=== PATIENT | female | born 1995 | race African-American/Black ===

== ENCOUNTER 2019-05-31 11:33 | Emergency (ER) | payer MEDICAID ==
[~2019-05-31] VITALS: Ht 160 cm; Wt 79.4 kg
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
[2019-05-31 12:49] LABS: ANION GAP 9 mmol/L (5-15); BASOPHILS % (AUTO) 0.6 % (0.0-2.0); BLOOD UREA NITROGEN 3 mg/dL (7-18); CALCIUM 8.9 MG/DL (8.5-10.1); CARBON DIOXIDE 25 MMOL/L (21-32); CHLORIDE 104 MMOL/L (98-107); CREATININE 0.6 MG/DL (0.55-1.30); HEMATOCRIT 33.8 % (37.0-47.0); LYMPHOCYTES % (AUTO) 26.1 % (20.0-45.0); MEAN CORPUSCULAR VOLUME 84 FL (80-99); MONOCYTES % (AUTO) 10.1 % (1.0-10.0); NEUTROPHILS % (AUTO) 62.3 % (45.0-75.0); PLATELET COUNT 243 K/UL (150-450); POTASSIUM 3.9 MMOL/L (3.5-5.1); RED BLOOD COUNT 4.01 M/UL (4.20-5.40); RED CELL DISTRIBUTION WIDTH 12.1 % (11.6-14.8); SODIUM 138 MMOL/L (136-145); WHITE BLOOD COUNT 6.2 K/UL (4.8-10.8)
[2019-05-31 12:53] LABS: ALANINE AMINOTRANSFERASE 91 U/L (12-78); ALBUMIN/GLOBULIN RATIO 0.7 (1.0-2.7); ALKALINE PHOSPHATASE 95 U/L (46-116); ASPARTATE AMINO TRANSFERASE 45 U/L (15-37); BILIRUBIN,TOTAL 0.5 MG/DL (0.2-1.0)
[2019-05-31 13:03] LABS: APPEARANCE,URINE SLIGHTLY CLOUDY; BILIRUBIN, URINE NEGATIVE (NEGATIVE); GLUCOSE, URINE (UA) NEGATIVE (NEGATIVE); KETONES,URINE 2+ (NEGATIVE); LEUKOCYTE ESTERASE ,URINE 3+ (NEGATIVE); NITRITE,URINE NEGATIVE (NEGATIVE); PH,URINE 6.5 (4.5-8.0); PROTEIN,URINE 1+ (NEGATIVE); UROBILINOGEN,URINE 1 MG/DL (0.0-1.0)
[2019-05-31 13:06] LABS: COLOR,URINE YELLOW
--- NOTE | 2019-05-31 14:15 | NUR ---
ED Nurse Note: patient taken to U/S
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
[2019-05-31] MEDS ORDERED: NITROFURANTOIN100 M2 ORAL (15:14)
[2019-05-31] MEDS ORDERED: TYLENOL EXTRA500 MG ORAL (15:14)
--- NOTE | 2019-05-31 15:14 | Diagnostic Imaging Report ---
Indication: Pelvic pain and vaginal bleeding. patient Technique: Transabdominal and transvaginal images of the uterus and fetus Comparison: none Findings: A single live intrauterine is demonstrated. Position is transverse. There is positive heart activity, heart rate 146 bpm. The placenta is posterior, fundal, clears the internal cervical os. Amniotic fluid volume is normal, amniotic fluid index 11 cm. The cervix is closed, endocervical canal measuring between 4.3 and 4.7 cm measurements as follows: Biparietal diameter 71 mm, 28 weeks 4 days; head circumference 2 73 mm, 29 weeks 5 days; abdominal circumference to 46 mm, 20 weeks 6 days; femur length 58 mm, 30 weeks 3 days. Estimated gestational age by average ultrasound measurements is 29 weeks 3 days. Estimated date of delivery 08/13/2019. Estimated gestational age by dates is 30 weeks 3 days. Detailed assessment of anatomy not performed, due to emergent nature of the exam. Four-chamber heart, stomach, bladder, normal cord insertion, grossly normal spine are demonstrated Impression: 29 week 3 day, by average of ultrasound measurements, single live intrauterine with transverse position. No unusual features
[2019-05-31 15:25] VITALS: BP 122/83
--- NOTE | 2019-05-31 15:25 | NUR ---
ER DISCHARGE NOTE: Patient is cleared to be discharged per DIANE ROCHA, pt is aox4, on room air, with stable vital signs. pt was given dc and prescription instructions, pt was able to verbalize understanding, pt id band and iv site removed without complications. pt is able to ambulate with steady gait. pt took all belongings.
== END 2019-05-31 15:25 | disposition home or self-care (01) ==
LOC: EMR 12:00
DX: O23.43 Unspecified infection of urinary tract in pregnancy, third trimester (principal); Z3A.29 29 weeks gestation of pregnancy; O26.893 Other specified pregnancy related conditions, third trimester; R10.30 Lower abdominal pain, unspecified
CPT/HCPCS: 36415; 76810; 80053; 81001; 84702; 85025; 86850; 86900; 86901; 87086; Z7502; 99284

== ENCOUNTER 2020-04-21 11:26 | Emergency (ER) | payer MEDICAID ==
[~2020-04-21] VITALS: Ht 160 cm; Wt 74.8 kg
[~2020-04-21 11:26] MED LIST: NITROFURANTOIN100 M2 ORAL; TYLENOL EXTRA500 MG ORAL
[2020-04-21] MEDS ORDERED: Fluorescein Strips BOTH EYES ONE (11:45)
[2020-04-21] MEDS ORDERED: Tetracaine 0.5% Opth 4ml Soln RIGHT EYE ONE (11:45)
[2020-04-21 11:51] VITALS: BP 126/75
--- NOTE | 2020-04-21 12:04 | Emergency Room Report ---
History of Present Illness General Chief Complaint: Eye Problems Source: Patient Present Illness HPI 24-year-old female presents with left eye pain and discharge with crusting, patient reports her right eye was affected 4 days ago with the same symptoms and now jumped to her left eye, no fevers no chills no changes in vision no pain with eye movement patient presents for evaluation and treatment, symptoms are moderate, and constant no aggravating or alleviating factors Allergies: Coded Allergies: IODINE (Verified Allergy, Unknown, 05/31/19) COVID-19 Screening Contact w/high risk pt: No Experienced COVID-19 symptoms?: No COVID-19 Testing performed CLUB ATTENDANT: No Patient History Past Medical History: see triage record Last Menstrual Period: 04/06/20 Now: No Reviewed Nursing Documentation: PMH: Agreed; PSxH: Agreed Nursing Documentation-PMH Past Medical History: No Stated History Review of Systems All Other Systems: negative except mentioned in HPI Physical Exam Vital Signs Date Time Temp Pulse Resp B/P (MAP) Pulse Ox O2 Delivery O2 Flow Rate FiO2 04/21/20 11:29 98.6 78 18 128/80 (96) 98 Room Air General Appearance: well appearing, no apparent distress Head: normocephalic, atraumatic Eyes: left eye fluoroscene uptake - Negative, left eye lid inflammation, left eye other - Conjunctiva injected left eye; bilateral eye PERRL, bilateral eye EOMI, bilateral eye visual acuity - Refer to nursing notes ENT: hearing grossly normal, normal voice Neck: full range of motion, supple Respiratory: no respiratory distress, speaking full sentences Neurologic: alert, normal gait Psychiatric: mood/affect normal Skin: no rash Medical Decision Making Diagnostic Impression: Primary Impression: Conjunctivitis Qualified Codes: H10.32 - Unspecified acute conjunctivitis, left eye ER Course 24-year-old female presents with conjunctivitis of the left eye, will provide erythromycin ointment patient given erythromycin ointment Disposition home with return precautions follow-up with PCP return to ED if she worsens Last Vital Signs Date Time Temp Pulse Resp B/P (MAP) Pulse Ox O2 Delivery O2 Flow Rate FiO2 04/21/20 11:51 98.6 82 17 126/75 99 Room Air Disposition: HOME, SELF-CARE Condition: Stable Referrals: [facility] Patient Instructions: Bacterial Conjunctivitis, [id number] Additional Instructions: The patient was provided with discharge instructions, notified to follow-up with a primary care doctor and or specialist in the next 24-48 hours, and to return to the ED if they have worsening of their symptoms. Please note that this report is being documented using [employer] technology. This can lead to erroneous entry secondary to incorrect interpretation by the dictating instrument. Erythromycin applied to the conjunctiva q6hrs for 7 days Esteban Brush MD Apr 21, 2020 12:04
[2020-04-21] MEDS ORDERED: Erythromycin Opth Ointment 1gm ONE (12:07)
[2020-04-21 12:14] VITALS: BP 122/73
[2020-04-21] MEDS ORDERED: Erythromycin Opth Ointment 1gm LEFT EYE SCH (21:00)
== END 2020-04-21 12:14 | disposition home or self-care (01) ==
LOC: EMR 11:51
DX: H10.32 Unspecified acute conjunctivitis, left eye (principal); Z88.8 Allergy status to other drugs, medicaments and biological substances
CPT/HCPCS: 99283

== ENCOUNTER 2020-10-11 10:33 | Emergency (ER) | payer MEDICAID ==
[~2020-10-11] VITALS: Ht 160 cm; Wt 79.8 kg
[2020-10-11 10:48] VITALS: BP 121/74
--- NOTE | 2020-10-11 10:49 | NUR ---
ED Nurse Note:pt. came from home with right buttock closed abscess for 4 days, no drainage
--- NOTE | 2020-10-11 11:16 | Emergency Room Report ---
History of Present Illness General Chief Complaint: Skin Rash/Abscess Source: Patient Present Illness HPI The patient presents with 3 days of pain in her upper gluteal medial area. She states it is difficult to sleep or sit because of the pain. The pain is rated 7/10 and constant but worse with any physical contact. She feels aching and pressure. It does not radiate. She denies fevers or chills. She has had this problem before. Is happened approximately 3 times. 1 time it spontaneously ruptured and pus drained. She is hoping that this can be lanced or surgically corrected. Menstruation due soon. Patient denies exposure to Covid positive contacts. No dysuria or change in bowel habits. Allergies: Coded Allergies: IODINE (Verified Allergy, Unknown, 05/31/19) COVID-19 Screening Contact w/high risk pt: No Experienced COVID-19 symptoms?: No COVID-19 Testing performed HELPER ANIMAL LABORATORY: No Patient History Past Medical History: see triage record Social History: Reports: smoking Social History Narrative From home Last Menstrual Period: 09/14/20 Reviewed Nursing Documentation: PMH: Agreed; PSxH: Agreed Nursing Documentation-PMH Past Medical History: No Stated History Review of Systems Constitutional: Reports: see HPI Gastrointestinal: Reports: see HPI Genitourinary: Reports: see HPI Musculoskeletal: Reports: see HPI Skin: Reports: see HPI Physical Exam Vital Signs Date Time Temp Pulse Resp B/P (MAP) Pulse Ox O2 Delivery O2 Flow Rate FiO2 10/11/20 10:41 98.1 93 17 121/74 (90) 99 Room Air Sp02 EP Interpretation: reviewed, normal General Appearance: well appearing, no apparent distress, GCS 15, non-toxic Head: normocephalic Eyes: bilateral eye normal inspection, bilateral eye PERRL, bilateral eye EOMI ENT: other - Wearing a mask Neck: normal inspection, full range of motion Respiratory: normal inspection Cardiovascular #1: regular rate, rhythm Cardiovascular #2: 2+ radial (R) Gastrointestinal: normal inspection Rectal: tenderness - Pilonidal area Musculoskeletal: gait/station normal, back normal Neurologic: alert, grossly normal Psychiatric: mood/affect normal Skin: normal color, no rash, other - Tenderness and some fullness in the pilonidal area without fluctuance or erythema Medical Decision Making Diagnostic Impression: Primary Impression: Pilonidal cyst ER Course Patient presents with tenderness in the pilonidal area. Differential includes abscess, cyst versus cellulitis. The swelling is deep and there is no fluctuance or drainage and no erythema. The pilonidal cyst is not ready to be lanced at this time and may resolve with oral antibiotics. In addition as this is happened 3 times before surgical intervention and marsupialization is more appropriate. Patient is treated with Motrin and Bactrim. Discussed treatment plan with patient. She is disappointed that it cannot be lanced at this time but understands the treatment plan. Patient was given referral to our general surgeon. I discussed the patient with him. Patient pain improved with treatment. Patient stable for outpatient observation and treatment. Last Vital Signs Date Time Temp Pulse Resp B/P (MAP) Pulse Ox O2 Delivery O2 Flow Rate FiO2 10/11/20 11:31 98.1 78 17 121/74 99 Room Air Status: improved Disposition: HOME, SELF-CARE Condition: Improved Scripts Ibuprofen* (MOTRIN*) 600 Mg Tablet 600 MG ORAL Q6H PRN for FOR PAIN, #20 TAB 0 Refills Prov: Jean Marie Hernandez MD 10/11/20 Trimethoprim/Sulfamethoxazole 160/800* (BACTRIM DS TABLET*) 1 Each Tablet 1 TAB ORAL Q12H, #14 TAB 0 Refills Prov: Jean Marie Hernandez MD 10/11/20 Jean Marie Hernandez MD Oct 11, 2020 11:16
--- NOTE | 2020-10-11 11:16 | NUR ---
ED Nurse Note: pt arrived for buttock cyst. evaled with MD in room. no drainage, no redness noted.
[2020-10-11] MEDS ORDERED: IBUPROFEN600 M1 ORAL (11:18)
[2020-10-11] MEDS ORDERED: BACTRIM DS TAB1 EAC1 ORAL (11:18)
--- NOTE | 2020-10-11 11:18 | NUR ---
ED Nurse Note: pt verbalized upset due to fact of MD inability to drain cyst. MD explained process.
--- NOTE | 2020-10-11 11:27 | NUR ---
ED Nurse Note: pt refusing medication dose in ER. states: "I have these at home. im not in pain right now. I just want to leave, I dont want to wiat. Elina been waiting forever for you to do nothing to hlep me. Im just going to leave." pt refusing last set of vitals
[2020-10-11] MEDS ORDERED: Bactrim-DS 1 tab ORAL ONE (11:30)
== END 2020-10-11 13:15 | disposition home or self-care (01) ==
LOC: EMR 11:18
DX: L05.91 Pilonidal cyst without abscess (principal); F17.200 Nicotine dependence, unspecified, uncomplicated; Z91.041 Radiographic dye allergy status
CPT/HCPCS: 99282

== ENCOUNTER 2020-10-27 00:27 | Emergency (ER) | payer MEDICAID ==
[~2020-10-27] VITALS: Ht 160 cm; Wt 80.7 kg
[~2020-10-27 00:27] MED LIST changes: +BACTRIM DS TAB1 EAC1 ORAL; +IBUPROFEN600 M1 ORAL
--- NOTE | 2020-10-27 00:45 | NUR ---
ED Nurse Note:Patient came into the ED complaining of right buttocks abscess. Reports that this the fourth occurence after treatment with antibiotic and warm compress. Patient has not followed up with a general surgeon as previously instructed. AOX4.
[2020-10-27] MEDS ORDERED: NAPROXEN500 M1 ORAL (01:14)
[2020-10-27] MEDS ORDERED: BACTRIM DS TAB1 EAC1 ORAL (01:14)
--- NOTE | 2020-10-27 01:16 | Emergency Room Report ---
History of Present Illness General Chief Complaint: Skin Rash/Abscess Source: Patient Present Illness HPI 25-year-old -Japanese female with past medical history of recurrent pilonidal cyst presents to ED with recurrent pilonidal cyst. She was seen in ED on Oct 11 and discharged with bactrim and instructed to f/u with GSx for cyst removal. She attempted to followup but was unsuccessful. Symptoms resolved and abscess improved until 2 days ago when she ran out of abx. She denies fever, chills, n/v/d, back pain, saddle anesthesia, urinary retention, bowel or bladder incontinence, dysuria, hematuria, or other complaints. The patient's symptoms were acute on chronic onset, severity was moderate, duration since 2.5 weeks Quality: dull, aching Past medical history: pilonidal cyst Past surgical history: Denies Smoking: Denies Alcohol use: Denies Drug use: Denies Review of systems: CONST: No fevers or chills, No night sweats PULMONARY: No productive cough, No shortness of breath CARDIAC: No chest pain, No palpitations GI: No vomiting, No diarrhea , No melena_or_BRBPR : No dysuria, No hematuria, No discharge NEURO: No new_focal_weakness_or_numbness, No confusion, No vision changes 14 point Review of Systems is otherwise negative except per HPI Physical Exam: GENERAL: Awake_alert_ nontoxic, no acute distress Spo2 98% on RA -normal EYES: Extraocular muscles are intact. Conjunctivae clear. Lids without swelling ENT: External nose and ear normal_in_appearance. Oropharynx clear. Head_atraumatic, Moist_oral_mucosa NECK: No JVD. No meningismus. No thyromegaly. Supple. Trachea midline RESP: Normal respiratory effort. Symmetric rise. No stridor. Clear_to_aus cultation_No_rales_No_wheezes CARDIAC: Regular rate and regular rhytm. No_significant pedal edema. ABDOMEN: Soft. Nondistended. Nontender_No_rebound_or_guarding. +R gluteal cleft indurated abscess. Minimal fluctuance. NO overlying cellulitis or palpable crepitus. No perianal abscess MSK: Normal muscle tone, without rigidity. Extremities without asymmetric deformity or swelling. SKIN: Warm and dry. No visible cyanosis or pallor NEUROLOGIC: Alert, oriented x3. Motor_and_sensation_grossly_intact. No truncal ataxia. Gait_normal Psych: Normal mood and affect, normal judgment and insight - COORDINATION OF CARE Case was discussed with: Patient Medical Decision Making/Plan: DDx: pilonidal cyst vs pilonidal abscess vs cutaneous abscess vs fistula vs cellulitis. No evidence of Leandra's gangrene Patient is a well-appearing afebrile 25-year-old female with recurrent pilonidal cyst. On examination, she has +R gluteal cleft abscess with minimal fluctuance, mostly indurated. Not substantial enough to drain at this time. NO overlying cellulitis or palpable crepitus. No perianal abscess. I have provided refill of bactrim and tylenol Rx for pain. Recommend f/u with PMD for referral to general surgeon for pilonidal cyst removal and washout. Patient was given referral information for [facility] ([place] [facility]) to obtain GSx follow up for cyst removal given recurrence. Pertinent results reviewed with the patient. I educated the patient on the current treatment plan including the risks, benefits, and alternatives. I also discussed the extent and limitations of the current evaluation. The patient expressed understanding and agreement with plan. I recommended PMD follow-up within 1-2 days. Also advised that the patient return to the Emergency Department as soon as possible if they experience any new, persistent, or worsening symptoms. Allergies: Coded Allergies: IODINE (Verified Allergy, Unknown, 05/31/19) COVID-19 Screening Contact w/high risk pt: No Experienced COVID-19 symptoms?: No COVID-19 Testing performed MARKETING REPRESENTATIVE: No Patient History Last Menstrual Period: 10/27/20 Now: No Nursing Documentation-[facility] Past Medical History: No Stated History Physical Exam Vital Signs Date Time Temp Pulse Resp B/P (MAP) Pulse Ox O2 Delivery O2 Flow Rate FiO2 10/27/20 00:42 98.4 85 20 124/84 (97) 98 Room Air Sp02 EP Interpretation: reviewed, normal Medical Decision Making Diagnostic Impression: Primary Impression: Pilonidal cyst Last Vital Signs Date Time Temp Pulse Resp B/P (MAP) Pulse Ox O2 Delivery O2 Flow Rate FiO2 10/27/20 00:42 98.4 85 20 124/84 (97) 98 Room Air Disposition: HOME, SELF-CARE Admit Decision Time: 01:15 Condition: Stable Scripts Naproxen* (NAPROXEN*) 500 Mg Tablet. 500 MG ORAL TWICE A DAY for 10 Days, #20 TAB Prov: Johnna Hernandez D.O. 10/27/20 Trimethoprim/Sulfamethoxazole 160/800* (BACTRIM DS TABLET*) 1 Each Tablet 1 TAB ORAL Q12H, #14 TAB 0 Refills Prov: Johnna Hernandez D.O. 10/27/20 Referrals: NON PHYSICIAN (PCP) Patient Instructions: Abscess, Pilonidal Cyst Additional Instructions: Instructions for patient/road design engineer: Follow up with your physician in 1-2 days for referral to general surgeon for removal of your pilonidal cyst Follow-up with your doctor sooner if your condition requires a more timely clinical reevaluation. Return to the emergency department immediately if you feel that your condition is worsening or if you have any new or concerning symptoms. Review your discharge instructions and take any prescriptions given as instructed. [facility] PROVIDES FREE OR LOW-COST HEALTH SERVICES TO PEOPLE WHO CAN SHOW PROOF THAT THEY LIVE IN [facility]. TO FIND MORE CLINICS PARTNERED WITH [facility] TO PROVIDE SERVICE, PLEASE CALL . Johnna Hernandez D.O. Oct 27, 2020 01:16
--- NOTE | 2020-10-27 01:20 | NUR ---
ER DISCHARGE NOTE: Patient is cleared to be discharged per ERMD, pt is aox4, on room air, with stable vital signs. pt was given dc and prescription instructions, pt was able to verbalize understanding, pt id band removed. pt is able to ambulate with steady gait. pt took all belongings.
[2020-10-27 01:37] VITALS: BP 124/84
== END 2020-10-27 01:20 | disposition home or self-care (01) ==
LOC: EMR 00:55
DX: L05.91 Pilonidal cyst without abscess (principal)
CPT/HCPCS: 99282